=== PATIENT | male | born 1990 | race Caucasian/White ===

== ENCOUNTER 2016-08-13 17:01 | Inpatient (IN) | payer BC ==
[~2016-08-13] VITALS: Ht 172.7 cm; Wt 72.7 kg
[2016-08-13 20:02] LABS: BASOPHILS 0.2 % (0.0-2.0); EOSINOPHILS 0.4 % (0-7); HEMATOCRIT 46.4 % (42.0-54.0); HEMOGLOBIN 16.7 g/dL (13.5-17.5); IMMATURE GRANULOCYTES 0.2 % (0-5); LYMPHOCYTES 26.3 % (15-50); MCH 29.9 pg (26.0-34.0); MCV 83.2 fL (80.0-100.0); MEAN PLATELET VOLUME 9.9 fL (7.4-10.4); MONOCYTES 2.1 % (2-11); NEUTROPHILS 70.8 % (40-80); PLATELET COUNT 259 10x3/uL (130-400); RBC 5.58 10x6/uL (4.20-6.10); RDW 12.9 % (11.5-14.5); WBC 10.1 10x3/uL (4.8-10.8)
[2016-08-13 20:11] LABS: KETONE - SERUM SMALL mg/dL (NEGATIVE)
[2016-08-13 20:27] LABS: ALBUMIN 4.3 g/dL (3.4-5.0); ALKALINE PHOSPHATASE 79 U/L (46-116); ALT (SGPT) 11 U/L (10-68); BILIRUBIN - TOTAL 0.71 mg/dL (0.2-1.3); CALC OSMOLALITY 276 mosm/kg (275-300); CALCIUM 9.1 mg/dL (8.5-10.1); CARBON DIOXIDE 13.4 mmol/L (21.0-32.0); CHLORIDE - SERUM 96 mmol/L (98-107); CREATININE - SERUM 1.2 mg/dL (0.6-1.3); POTASSIUM - SERUM 4.5 mmol/L (3.5-5.1); PROTEIN - SERUM 7.5 g/dL (6.4-8.2); SODIUM 134 mmol/L (136-145); UREA NITROGEN 12 mg/dL (7-18); eGFR NON AFRICAN AMERICAN 77 mL/min (90-120)
[2016-08-13 20:29] LABS: GLUCOSE 261 mg/dL (74-106)
[2016-08-13 20:55] LABS: APPEARANCE CLEAR (CLEAR); BILIRUBIN NEGATIVE (NEGATIVE); COLOR YELLOW (YELLOW); GLUCOSE 1000 mg/dL (NEGATIVE); KETONE LARGE mg/dL (NEGATIVE); LEUKOCYTE ESTERASE NEGATIVE (NEGATIVE); NITRITE NEGATIVE (NEGATIVE); PROTEIN NEGATIVE (NEGATIVE); UROBILINOGEN NORMAL (NORMAL)
[2016-08-13 22:06] LABS: MAGNESIUM - SERUM 1.5 mg/dL (1.8-2.4); PHOSPHOROUS 3.1 mg/dL (2.5-4.9)
[2016-08-13 23:03] VITALS: BP 125/71; BMI 24.3
[2016-08-13] MEDS ORDERED: LEVEMIR100 U/M1 SC (23:10)
[2016-08-13] MEDS ORDERED: HUMULIN R100 U/ML SC (23:12)
[2016-08-13] MEDS ORDERED: KEPPRA750 MG PO (23:13)
--- NOTE | 2016-08-13 23:22 | NUR ---
NS STARTED TO RT IV SITE AT 150CC'S/HR.
[2016-08-14] VITALS: BP 125/71
--- NOTE | 2016-08-14 00:43 | NUR ---
EYES CLOSED RESPIRATIONS WITH EASE AND UNLABORED.
--- NOTE | 2016-08-14 02:13 | NUR ---
C/O NAUSEA NO EMESIS NOTIFIED DR. ALVARADO ORDERS REC'D. ZOFRAN 4MG IVP GIVEN FOR NAUSEA.
--- NOTE | 2016-08-14 03:19 | NUR ---
FSBS= 346. HUMALOG INSULIN 12 UNITS GIVEN PER S/S.
[2016-08-14 04:00] VITALS: BP 127/61
[2016-08-14 05:25] LABS: BASOPHILS 0.1 % (0.0-2.0); EOSINOPHILS 0.1 % (0-7); HEMATOCRIT 45.1 % (42.0-54.0); HEMOGLOBIN 15.4 g/dL (13.5-17.5); IMMATURE GRANULOCYTES 0.2 % (0-5); LYMPHOCYTES 6.1 % (15-50); MCHC 34.1 g/dL (31.0-37.0); MCV 84.9 fL (80.0-100.0); MEAN PLATELET VOLUME 9.9 fL (7.4-10.4); MONOCYTES 4.9 % (2-11); NEUTROPHILS 88.6 % (40-80); PLATELET COUNT 248 10x3/uL (130-400); RBC 5.31 10x6/uL (4.20-6.10); RDW 12.8 % (11.5-14.5)
[2016-08-14 06:05] LABS: WBC 17.4 10x3/uL (4.8-10.8)
[2016-08-14 06:12] LABS: CALCIUM 8.8 mg/dL (8.5-10.1); CREATININE - SERUM 1.4 mg/dL (0.6-1.3); POTASSIUM - SERUM 4.7 mmol/L (3.5-5.1)
[2016-08-14 06:42] LABS: ANION GAP 29.7 mmol/L (8-16)
--- NOTE | 2016-08-14 07:49 | NUR ---
SLEEPING QUIETLY AT PRESENT RESP EVEN AND UNLABORED AT PRESENT DENIES ANY NEEDS AT PRESENT.
[2016-08-14 07:57] VITALS: BP 100/50
--- NOTE | 2016-08-14 10:00 | NUR ---
VS NEW ODRES R/N AT PRESENT.
[2016-08-14 11:02] VITALS: Ht 172.7 cm; Wt 72.7 kg
--- NOTE | 2016-08-14 11:53 | NUR ---
LAYING QUIETLY IN BED AT PRESENT EYES CLOSED AT PRESENT N/C.
--- NOTE | 2016-08-14 12:00 | NUR ---
CLEAR SERVED TAKEN SMALL AMT ONLY.
[2016-08-14 12:31] VITALS: BP 94/49
--- NOTE | 2016-08-14 14:00 | NUR ---
SLEEPING QUIETLY AT PRESENT N/C VOICED AT PRESENT.
[2016-08-14 15:57] VITALS: BP 94/49
--- NOTE | 2016-08-14 17:38 | NUR ---
STATUS REMAINS UNCHGD AT PRESENT QUIET IN ROOM N/C VOICED AT PRESENT.
[2016-08-14 20:00] VITALS: BP 96/55
--- NOTE | 2016-08-14 20:00 | NUR ---
ASSESSMENT PER FLOWSHEET. IV PATENT RT WRIST OF NS AT 150CC'S/HR SITE CLEAR. ZOFRAN GTT AT 4CC'S/HR PROTONIX GTT AT 10CC'S/HR. SITE CLEAR. RESTING QUIETLY DENIES NEEDS.
--- NOTE | 2016-08-14 21:30 | NUR ---
MEDS GIVEN PER OCT. YIKY=[id number]. HUMALOG INSULIN OF 12 UNITS GIOVEN PER S/S.
[2016-08-15] VITALS: BP 100/58
--- NOTE | 2016-08-15 | NUR ---
EYES CLOSED RESPIRATIONS WITH EASE AND UNLABORED.
--- NOTE | 2016-08-15 03:00 | NUR ---
BXJW=[id number] NO COVERAGE NEEDED.
[2016-08-15 04:00] VITALS: BP 96/49
[2016-08-15 06:31] LABS: BASOPHILS 0.3 % (0.0-2.0); EOSINOPHILS 1.8 % (0-7); HEMATOCRIT 39.4 % (42.0-54.0); HEMOGLOBIN 13.9 g/dL (13.5-17.5); IMMATURE GRANULOCYTES 0.1 % (0-5); LYMPHOCYTES 43.4 % (15-50); MCH 29.3 pg (26.0-34.0); MCHC 35.3 g/dL (31.0-37.0); MEAN PLATELET VOLUME 9.3 fL (7.4-10.4); MONOCYTES 5.6 % (2-11); NEUTROPHILS 48.8 % (40-80); PLATELET COUNT 218 10x3/uL (130-400); RBC 4.75 10x6/uL (4.20-6.10)
[2016-08-15 06:45] LABS: MCV 82.9 fL (80.0-100.0); WBC 6.8 10x3/uL (4.8-10.8)
[2016-08-15 07:03] LABS: HEMOGLOBIN A1C 9.1 % (4.8-6.0)
[2016-08-15 07:04] LABS: ALKALINE PHOSPHATASE 59 U/L (46-116); ALT (SGPT) 12 U/L (10-68); CALCIUM 7.8 mg/dL (8.5-10.1); CHLORIDE - SERUM 108 mmol/L (98-107); CHOL - HDL RATIO 4.9 ratio (2.3-4.9); CHOLESTEROL, TOTAL 162 mg/dL (0-200); CREATININE - SERUM 1.2 mg/dL (0.6-1.3); HDL CHOLESTEROL 33 mg/dL (32-96); LDL CHOLESTEROL 100 mg/dL (0-100); MAGNESIUM - SERUM 1.5 mg/dL (1.8-2.4); PHOSPHOROUS 2.6 mg/dL (2.5-4.9); SODIUM 140 mmol/L (136-145); TRIGLYCERIDE 145 mg/dL (30-200); eGFR NON AFRICAN AMERICAN 77 mL/min (90-120)
[2016-08-15 07:12] LABS: CALC OSMOLALITY 275 mosm/kg (275-300); CARBON DIOXIDE 17.7 mmol/L (21.0-32.0); GLUCOSE 86 mg/dL (74-106); POTASSIUM - SERUM 3.7 mmol/L (3.5-5.1); PROTEIN - SERUM 5.6 g/dL (6.4-8.2); UREA NITROGEN 7 mg/dL (7-18)
--- NOTE | 2016-08-15 07:15 | NUR ---
REPORT RECEIVED FROM CONSTRUCTION OR [employer] G[employer]ORER NURSE. CALL LIGHT IN REACH.
[2016-08-15 07:41] VITALS: BP 96/49
--- NOTE | 2016-08-15 09:16 | NUR ---
ASSESSMENT COMPLETED. AM MEDS ADMINISTERED. FSBS 50. JUICE GIVEN TO PATIENT TO DRINK. FAMILY IN ROOM. CALL LIGHT IN REACH. WILL CONTINUE WITH PLAN OF CARE.
[2016-08-15] MEDS ORDERED: LIPITOR10 MG PO (10:48)
[2016-08-15] MEDS ORDERED: PROTONIX40 MG PO (10:49)
--- NOTE | 2016-08-15 11:50 | NUR ---
AWAKE ALERT COLOR ADQ SKIN WARM AND DRY RESP EVEN AND UNLABORED AT PRESENT WAITING TO GO HOME AT PRESENT.
--- NOTE | 2016-08-15 13:40 | NUR ---
IV DC'D WITH TIP INTACT.
--- NOTE | 2016-08-15 14:10 | NUR ---
DC INSTRUCTIONS EXPLAINED TO PATIENT. VERBALIZED UNDERSTANDING. REFUSED WC. DC'D TO VEHICLE WITH FAMILY.
== END 2016-08-15 14:10 | disposition home or self-care (01) | DRG 639 ==
LOC: D.ER 17:01 → D.MS 20:54
PROVIDERS: Emergency Medicine; ADMIT Family Medicine
DX: E10.10 Type 1 diabetes mellitus with ketoacidosis without coma (principal); K29.70 Gastritis, unspecified, without bleeding; G40.909 Epilepsy, unspecified, not intractable, without status epilepticus; E78.5 Hyperlipidemia, unspecified; R11.2 Nausea with vomiting, unspecified

== ENCOUNTER 2017-02-18 05:23 | Inpatient (IN) | payer BC ==
[~2017-02-18] VITALS: Ht 172.7 cm; Wt 71.7 kg
[2017-02-18] VITALS (15 sets, daily range): BP systolic 97–142; BP diastolic 41–71; BMI 23.1
[~2017-02-18 05:23] MED LIST: HUMULIN R100 U/ML SC; KEPPRA750 MG PO; LEVEMIR100 U/M1 SC; LIPITOR10 MG PO; PROTONIX40 MG PO
[2017-02-18 06:55] LABS: ALBUMIN 4.5 g/dL (3.4-5.0); ALKALINE PHOSPHATASE 93 U/L (46-116); ALT (SGPT) 16 U/L (10-68); BILIRUBIN - TOTAL 0.89 mg/dL (0.2-1.3); CALCIUM 8.9 mg/dL (8.5-10.1); CHLORIDE - SERUM 96 mmol/L (98-107); CREATININE - SERUM 1.9 mg/dL (0.6-1.3); POTASSIUM - SERUM 5.6 mmol/L (3.5-5.1); SODIUM 137 mmol/L (136-145); UREA NITROGEN 29 mg/dL (7-18); eGFR NON AFRICAN AMERICAN 45 mL/min (90-120)
[2017-02-18 07:00] LABS: CALC OSMOLALITY 297 mosm/kg (275-300)
[2017-02-18 07:01] LABS: CARBON DIOXIDE 8.2 mmol/L (21.0-32.0); GLUCOSE 420 mg/dL (74-106); KETONE - SERUM MODERATE mg/dL (NEGATIVE)
[2017-02-18 07:08] LABS: BASOPHILS 0.2 % (0-2); EOSINOPHILS 0.1 % (0-7); HEMATOCRIT 49.6 % (42.0-54.0); HEMOGLOBIN 16.7 g/dL (13.5-17.5); IMMATURE GRANULOCYTES 0.4 % (0-5); LYMPHOCYTES 10.3 % (15-50); MCH 29.3 pg (26.0-34.0); MCHC 33.7 g/dL (31.0-37.0); MEAN PLATELET VOLUME 10.4 fL (7.4-10.4); MONOCYTES 4.3 % (2-11); NEUTROPHILS 84.7 % (40-80); PLATELET COUNT 324 10x3/uL (130-400); WBC 19.9 10x3/uL (4.8-10.8)
--- NOTE | 2017-02-18 09:50 | NUR ---
ADMIT TO ICU. FSBS 262. INSULIN GTT AT 5 UNITS/HR. VOICES NO CO AT TIME.
[2017-02-18] MEDS ORDERED: NOVOLIN N100 U/ML SQ (10:28)
--- NOTE | 2017-02-18 10:30 | NUR ---
DR RAMSAY HERE. DKA ORDERS FOR CRITICAL CARE STARTED
[2017-02-18 11:07] LABS: CALCIUM 8.1 mg/dL (8.5-10.1); CHLORIDE - SERUM 106 mmol/L (98-107); CREATININE - SERUM 1.6 mg/dL (0.6-1.3); MAGNESIUM - SERUM 1.9 mg/dL (1.8-2.4); SODIUM 141 mmol/L (136-145); UREA NITROGEN 25 mg/dL (7-18); eGFR NON AFRICAN AMERICAN 55 mL/min (90-120)
[2017-02-18 11:08] LABS: CALC OSMOLALITY 289 mosm/kg (275-300); CARBON DIOXIDE 16.5 mmol/L (21.0-32.0); GLUCOSE 186 mg/dL (74-106); KETONE - SERUM MODERATE mg/dL (NEGATIVE); POTASSIUM - SERUM 4.5 mmol/L (3.5-5.1)
[2017-02-18 14:50] LABS: CALC OSMOLALITY 288 mosm/kg (275-300); CALCIUM 8.3 mg/dL (8.5-10.1); CARBON DIOXIDE 18.8 mmol/L (21.0-32.0); CHLORIDE - SERUM 106 mmol/L (98-107); CREATININE - SERUM 1.5 mg/dL (0.6-1.3); GLUCOSE 223 mg/dL (74-106); MAGNESIUM - SERUM 1.9 mg/dL (1.8-2.4); POTASSIUM - SERUM 4.8 mmol/L (3.5-5.1); SODIUM 140 mmol/L (136-145); UREA NITROGEN 21 mg/dL (7-18); eGFR NON AFRICAN AMERICAN 59 mL/min (90-120)
[2017-02-18 16:43] LABS: KETONE - SERUM SMALL mg/dL (NEGATIVE)
[2017-02-18 18:22] LABS: KETONE - SERUM SMALL mg/dL (NEGATIVE)
[2017-02-18 18:31] LABS: CALC OSMOLALITY 287 mosm/kg (275-300); CALCIUM 8.1 mg/dL (8.5-10.1); CARBON DIOXIDE 21.1 mmol/L (21.0-32.0); CHLORIDE - SERUM 107 mmol/L (98-107); CREATININE - SERUM 1.4 mg/dL (0.6-1.3); GLUCOSE 219 mg/dL (74-106); MAGNESIUM - SERUM 1.9 mg/dL (1.8-2.4); POTASSIUM - SERUM 4.4 mmol/L (3.5-5.1); SODIUM 140 mmol/L (136-145); UREA NITROGEN 18 mg/dL (7-18); eGFR NON AFRICAN AMERICAN 64 mL/min (90-120)
--- NOTE | 2017-02-18 19:00 | NUR ---
REPORT RECEIVED. SHIFT ASSESSMENT COMPLETE PER FLOW SHEET. LAYING IN BED AWAKE AND ORIENTED TO PERSON, TIME, PLACE, SITUATION. EENT WNL. S1S2 PRESENT. TELEMETRY MONITORING RATE 78. RR18. TEMP 98.4 ORALLY. BP 136/71. FULL ROM IN UPPER AND LOWER EXTREMITIES. PHARMACOGNOSIST STRENGHT STRONG. MUCOUS MEMBRANES MOIST. LUNG SOUNDS CLEAR. BS ACTIVE X4. URINAL AT BEDSIDE 700 MLS OF YELLOW URINE NOTED. RADIAL AND POPLITEAL PULSES PALPABLE. RATES PAIN 0/10 ON NUMERIC SCALE. SEE FLOW SHEET FOR COMPLETE ASSESSMENT. WILL CONTINUE TO MONITOR. CALL LIGHT WITHIN REACH. BED IN LOWEST POSITION.
--- NOTE | 2017-02-18 20:00 | NUR ---
LAYING IN BED AWAKE. FSBS 170. INSULIN DRIP INFUSING AT 2 UNITS/HR. VSS. DENIES FURTHER NEEDS AT THIS TIME. WILL CONTINUE TO MONITOR.
--- NOTE | 2017-02-18 21:00 | NUR ---
LAYING IN BED AWAKE. FSBS 161. INSULIN DRIP INFUSING AT 2 UNITS/HR VIA L PIV. VSS. CALL LIGHT WITHIN REACH. WILL CONTINUE TO MONITOR.
--- NOTE | 2017-02-18 22:00 | NUR ---
LAYING IN BED SLEEPING. FSBS 185. INSULIN DRIP INFUSING AT 2 UNITS/HR VIA L AC PIV. DENIES FURTHER NEEDS AT THIS TIME. CALL LIGHT WITHIN REACH. WILL CONTINUE TO MONITOR.
--- NOTE | 2017-02-18 23:00 | NUR ---
REASSESSMENT COMPLETE PER FLOW SHEET, SEE FOR DETAILS. FSBS 196. INSULIN DRIP RATE CHANGED TO 3 UNITS/HR. DENIES FURTHER NEEDS AT THIS TIME. CALL LIGHT WITHIN REACH. BED IN LOWEST POSITION. WILL CONTINUE TO MONITOR.
[2017-02-19] VITALS (12 sets, daily range): BP systolic 90–119; BP diastolic 45–74; Ht 172.7 cm; Wt 71.7 kg
--- NOTE | 2017-02-19 | NUR ---
LAYING IN BED AWAKE WATCHING T.V. FSBS 163. INSULIN DRIP AT 3 UNITS/HR.
[2017-02-19 00:01] LABS: ANION GAP 13.1 mmol/L (8-16); CALCIUM 7.8 mg/dL (8.5-10.1); CARBON DIOXIDE 23.7 mmol/L (21.0-32.0); CREATININE - SERUM 1.4 mg/dL (0.6-1.3); MAGNESIUM - SERUM 1.6 mg/dL (1.8-2.4); POTASSIUM - SERUM 3.8 mmol/L (3.5-5.1)
--- NOTE | 2017-02-19 01:00 | NUR ---
LAYING IN BED SLEEPING. FSBS 162. INSULIN DRIP INFUSING AT 3 UNITS/HR. WILL CONTINUE TO MONITOR.
--- NOTE | 2017-02-19 02:00 | NUR ---
LAYING IN BED SLEEPING. FSBS 142. INSULIN DRIP DECREASED TO 2 UNITS/HR. VSS. CALL LIGHT WITHIN REACH. BED IN LOWEST POSITION. WILL CONTINUE TO MONITOR.
--- NOTE | 2017-02-19 03:00 | NUR ---
REASSESSMENT COMPLETE PER FLOW SHEET. NO CHANGES NOTED. FSBS 156. INSULIN DRIP INFUSING AT 2 UNITS/HR. VSS. DENIES FURTHER NEEDS AT THIS TIME. CALL LIGHT WITHIN REACH. BED IN LOWEST POSITION.
--- NOTE | 2017-02-19 04:00 | NUR ---
LAYING IN BED SLEEPING. VSS. FSBS 149. INSULIN DRIP INFUSING 2 UNITS/HR. CALL LIGHT WITHIN REACH. BED IN LOWEST POSITION. WILL CONTINUE TO MONITOR.
--- NOTE | 2017-02-19 06:00 | NUR ---
LAYING IN BED SLEEPING.FSBS 126. INSULIN TURNED OFF.DENIES FURTHER NEEDS AT THIS TIME. BED IN LOWEST POSITION. CALL LIGHT WITHIN REACH.
[2017-02-19 06:27] LABS: ALKALINE PHOSPHATASE 59 U/L (46-116); BILIRUBIN - TOTAL 0.68 mg/dL (0.2-1.3); CALC OSMOLALITY 280 mosm/kg (275-300); CALCIUM 7.9 mg/dL (8.5-10.1); CARBON DIOXIDE 20.1 mmol/L (21.0-32.0); CHLORIDE - SERUM 110 mmol/L (98-107); GLUCOSE 161 mg/dL (74-106); MAGNESIUM - SERUM 1.7 mg/dL (1.8-2.4); POTASSIUM - SERUM 3.9 mmol/L (3.5-5.1); SODIUM 140 mmol/L (136-145); UREA NITROGEN 11 mg/dL (7-18)
[2017-02-19 06:28] LABS: ALBUMIN 2.9 g/dL (3.4-5.0); ALT (SGPT) 10 U/L (10-68); CREATININE - SERUM 0.9 mg/dL (0.6-1.3); PROTEIN - SERUM 5.5 g/dL (6.4-8.2); eGFR NON AFRICAN AMERICAN > 90 mL/min (90-120)
[2017-02-19 06:34] LABS: BASOPHILS 0.2 % (0-2); EOSINOPHILS 2.3 % (0-7); HEMOGLOBIN 13.6 g/dL (13.5-17.5); IMMATURE GRANULOCYTES 0.2 % (0-5); LYMPHOCYTES 44.9 % (15-50); MCH 28.8 pg (26.0-34.0); MCHC 35.1 g/dL (31.0-37.0); MEAN PLATELET VOLUME 9.2 fL (7.4-10.4); MONOCYTES 4.3 % (2-11); NEUTROPHILS 48.1 % (40-80); RBC 4.73 10x6/uL (4.20-6.10); RDW 12.8 % (11.5-14.5)
[2017-02-19 06:35] LABS: HEMATOCRIT 38.7 % (42.0-54.0); MCV 81.8 fL (80.0-100.0); PLATELET COUNT 227 10x3/uL (130-400)
[2017-02-19 06:36] LABS: WBC 8.7 10x3/uL (4.8-10.8)
--- NOTE | 2017-02-19 07:00 | NUR ---
ASSESSMENT COMPLETE PER FLOWSHEET. VOICES NO CO AT TIME.
--- NOTE | 2017-02-19 10:51 | NUR ---
* Is the patient Alert and Oriented? Yes 0 * PCP None 0 * Pharmacy [facility] [address] * Preadmission Environment Home Alone 0 * ADLs Independent 0 * Equipment Glucometer 0 * Additional services required to return to the preadmission environment? No 0 * Can the patient safely return to the preadmission environment? Yes 0 * Has this patient been hospitalized within the prior 30 days at any hospital? No 02/19/2017 10:52 DCP: Discharge Planning Patient Name: SEGUNDO LOUIS Admission Status: ER Accout number: [id number] Admission Date: 02-18-2017 : 1990 Admission Diagnosis: Attending: MAILE Current LOS: 1 Anticipated DC Date: 02-20-2017 Planned Disposition: Home Primary Insurance: [employer] OUT OF STATE Discharge Planning Comments: CM met with patient to assess dc plans/needs. 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 He states he has a glucometer. At dc, he will return home. He states he will drive himself home - stating "I really don't have any family to help". He doesn't feel home health services are needed. Anticipate DC next 1-2 days. CM will follow & assist as needed. Rn Pediatric: Nerissa Cruz
--- NOTE | 2017-02-19 12:00 | NUR ---
SITTING UP EATING LUNCH NO CO AT TIME.
[2017-02-19 12:18] LABS: ALBUMIN 2.8 g/dL (3.4-5.0); ALKALINE PHOSPHATASE 62 U/L (46-116); BILIRUBIN - TOTAL 0.71 mg/dL (0.2-1.3); CALCIUM 7.8 mg/dL (8.5-10.1); CARBON DIOXIDE 21.2 mmol/L (21.0-32.0); CHLORIDE - SERUM 108 mmol/L (98-107); CREATININE - SERUM 1.1 mg/dL (0.6-1.3); MAGNESIUM - SERUM 1.6 mg/dL (1.8-2.4); PROTEIN - SERUM 5.6 g/dL (6.4-8.2); SODIUM 137 mmol/L (136-145); eGFR NON AFRICAN AMERICAN 85 mL/min (90-120)
[2017-02-19 12:20] LABS: ALT (SGPT) 14 U/L (10-68); CALC OSMOLALITY 282 mosm/kg (275-300); GLUCOSE 297 mg/dL (74-106); POTASSIUM - SERUM 4.7 mmol/L (3.5-5.1); UREA NITROGEN 8 mg/dL (7-18)
--- NOTE | 2017-02-19 16:02 | NUR ---
WATCHING TV. NO CO AT TIME. OK TO GO TO FLOOR.
--- NOTE | 2017-02-19 17:36 | NUR ---
PT ARRIVED TO ROOM A&O. VSS. PROVIDED PT WITH DIET LEMON EKUK SODA. PT DENIES ANY FURTHER NEEDS AT THIS TIME. WILL CPOC.
[2017-02-19 19:23] LABS: ALBUMIN 3.1 g/dL (3.4-5.0); ALKALINE PHOSPHATASE 65 U/L (46-116); ALT (SGPT) 15 U/L (10-68); BILIRUBIN - TOTAL 0.42 mg/dL (0.2-1.3); CALCIUM 8.1 mg/dL (8.5-10.1); CARBON DIOXIDE 21.8 mmol/L (21.0-32.0); CHLORIDE - SERUM 108 mmol/L (98-107); CREATININE - SERUM 1.2 mg/dL (0.6-1.3); MAGNESIUM - SERUM 1.4 mg/dL (1.8-2.4); SODIUM 139 mmol/L (136-145); UREA NITROGEN 7 mg/dL (7-18); eGFR NON AFRICAN AMERICAN 77 mL/min (90-120)
[2017-02-19 19:25] LABS: CALC OSMOLALITY 281 mosm/kg (275-300); GLUCOSE 204 mg/dL (74-106); POTASSIUM - SERUM 3.9 mmol/L (3.5-5.1); PROTEIN - SERUM 5.9 g/dL (6.4-8.2)
--- NOTE | 2017-02-19 19:31 | NUR ---
ALERT/AWAKE WATCHING TV. DENIES PAIN OR ANY NEEDS. IV IN L AC INTACT SL. BED IS LOW WITH SR UP X2. CALL LIGHT IN HIS HAND.
--- NOTE | 2017-02-19 21:55 | NUR ---
CHECKED BLOOD SUGAR AT 161. ADMIN HUMULIN R 4 UNITS SC. REQUESTED PRAKASH CRACKERS AND DIET LEMON-BLACKFEET SODA.
[2017-02-20 04:00] VITALS: BP 100/56
--- NOTE | 2017-02-20 04:35 | NUR ---
CHECKED BS WITH GLUCOMETER AT 56. GAVE HIM SOME APPLEJUICE TO DRINK. WILL RECHECK.
[2017-02-20 06:52] LABS: BASOPHILS 0.3 % (0-2); EOSINOPHILS 1.7 % (0-7); HEMOGLOBIN 14.5 g/dL (13.5-17.5); IMMATURE GRANULOCYTES 0.1 % (0-5); LYMPHOCYTES 37.5 % (15-50); MCH 29.4 pg (26.0-34.0); MCHC 35.4 g/dL (31.0-37.0); MCV 83.2 fL (80.0-100.0); MEAN PLATELET VOLUME 9.2 fL (7.4-10.4); MONOCYTES 6.3 % (2-11); NEUTROPHILS 54.1 % (40-80); PLATELET COUNT 212 10x3/uL (130-400); RBC 4.93 10x6/uL (4.20-6.10); RDW 13.1 % (11.5-14.5)
[2017-02-20 07:13] LABS: ALBUMIN 3.2 g/dL (3.4-5.0); ALKALINE PHOSPHATASE 65 U/L (46-116); ALT (SGPT) 17 U/L (10-68); BILIRUBIN - TOTAL 0.56 mg/dL (0.2-1.3); CALCIUM 8.3 mg/dL (8.5-10.1); CARBON DIOXIDE 23.9 mmol/L (21.0-32.0); CHLORIDE - SERUM 109 mmol/L (98-107); POTASSIUM - SERUM 3.4 mmol/L (3.5-5.1); SODIUM 144 mmol/L (136-145); eGFR NON AFRICAN AMERICAN > 90 mL/min (90-120)
[2017-02-20 07:14] LABS: CALC OSMOLALITY 282 mosm/kg (275-300); GLUCOSE 85 mg/dL (74-106); UREA NITROGEN 5 mg/dL (7-18)
--- NOTE | 2017-02-20 08:08 | NUR ---
INTRODUCED MYSELF TO PT PRIMARY RN FOR TODAYS SHIFT. SHIFT ASSESSMENT COMPLETED. PT A&O X4 RESTING QUIETLY SITTING UP ON EDGE OF BED EATING BREAKFAST. FSBS 77 NO COVERAGE NEEDED PER SS. PT WANTING TO SHOWER. PROVIDED PT WITH SUPPLIES FOR SHOWER AND WRAPPED L.AC PIV. PT DENIES ANY FURTHER NEEDS AT THIS TIME, CL IN REACH. WILL CPOC.
[2017-02-20 08:36] VITALS: BP 127/86
[2017-02-20 12:19] LABS: ALBUMIN 3.1 g/dL (3.4-5.0); ALKALINE PHOSPHATASE 66 U/L (46-116); ALT (SGPT) 19 U/L (10-68); BILIRUBIN - TOTAL 0.72 mg/dL (0.2-1.3); CALC OSMOLALITY 287 mosm/kg (275-300); CALCIUM 8.3 mg/dL (8.5-10.1); CARBON DIOXIDE 23.8 mmol/L (21.0-32.0); CHLORIDE - SERUM 106 mmol/L (98-107); GLUCOSE 318 mg/dL (74-106); POTASSIUM - SERUM 4.4 mmol/L (3.5-5.1); SODIUM 139 mmol/L (136-145); UREA NITROGEN 7 mg/dL (7-18); eGFR NON AFRICAN AMERICAN > 90 mL/min (90-120)
[2017-02-20 12:55] VITALS: BP 117/78
--- NOTE | 2017-02-20 15:07 | NUR ---
D/C PTS L.AC PIV WITH CATH TIP INTACT. DISCHARGE INSTRUCTIONS GIVEN AND PT VERBALIZED UNDERSTANDING. PT COLLECTING BELONGINGS AND WAITING ON HIS RIDE. NO FURTHER NEEDS NOTED AT THIS TIME. WILL CTM.
--- NOTE | 2017-02-20 16:29 | NUR ---
FSBS 133 NO TX REQUIRED. PT READY FOR DISCHARGE NOW. WILL TRANSPORT HIM TO VEHICLE. NO FURTHER NEEDS.
== END 2017-02-20 16:32 | disposition home or self-care (01) | DRG 639 ==
LOC: D.ER 05:23 → D.M2 08:25 → D.ICU 08:25 → D.M2 02-19 16:58
PROVIDERS: Emergency Medicine; ADMIT Emergency Medicine
DX: E10.10 Type 1 diabetes mellitus with ketoacidosis without coma (principal); Z79.4 Long term (current) use of insulin; Z72.0 Tobacco use; G40.909 Epilepsy, unspecified, not intractable, without status epilepticus; K29.70 Gastritis, unspecified, without bleeding

== ENCOUNTER 2017-08-11 10:03 | Emergency (ER) | payer BC ==
[2017-02-19 10:04] VITALS: BMI 24.7
[~2017-08-11 10:03] MED LIST changes: +NOVOLIN N100 U/ML SQ
== END 2017-08-11 11:56 | disposition home or self-care (01) ==
LOC: D.ER 10:03
DX: J01.90 Acute sinusitis, unspecified (principal); F17.200 Nicotine dependence, unspecified, uncomplicated; E11.9 Type 2 diabetes mellitus without complications